=== PATIENT | female | born 1985 | race Two or more races ===

== ENCOUNTER 2024-02-10 08:51 | Emergency (ER) | payer OTHER, SELFPAY ==
[2024-02-10 09:13] VITALS: BP 132/87; PULSE 76; RESP 16; TEMP 36.9; O2SAT 99
[2024-02-10 09:14] VITALS: BMI 28.8
--- NOTE | 2024-02-10 09:15 | PD.EDHA ---
ED Headache RME/HPI General Chief Complaint: Headache Stated Complaint: RIGHT SIDE HEADACHE/THROBBING x 3 DAYS Time Seen by Provider: 02/10/24 09:07 Source: patient, RN notes reviewed and old records reviewed Arrival date/time: 02/10/24 08:51 Mode of arrival: ambulatory Limitations: no limitations RME / HPI RME / HPI Narrative: 38yof presents to ED for 2-day history of right-sided aching, throbbing headache. Patient recently diagnosed with migraines, she has a neurology appointment scheduled for 02/24. No vision changes, nausea/vomiting, neck pain or dizziness reported. Patient has taken Tylenol with mild but temporary relief, no medications or treatments today. Current pain 10/05. Related Data Previous Rx's ?Medication ?Instructions ?Recorded naproxen 500 mg tablet (Naprosyn) 500 mg PO BID PRN pain #30 tabs 02/10/24 ondansetron 4 mg disintegrating 4 mg PO Q6H PRN nausea #10 tabs 02/10/24 tablet Allergies Allergy/AdvReac Type Severity Reaction Status Date / Time No Known Allergies Allergy Verified 02/10/24 08:58 Review of Systems Review of Systems Systems Reviewed: All systems reviewed, normal except as documented Constitutional Constitutional: Denies chills, Denies fever(s) and Reports headache(s) ENT Ears, Nose, Mouth, and Throat: Denies dizziness, Reports headache(s), Denies nasal congestion and Denies neck pain Gastrointestinal Gastrointestinal: Denies nausea and Denies vomiting Musculoskeletal Musculoskeletal: Denies neck pain Neurologic Neurologic: Denies dizziness, Denies localized weakness and Reports headache(s) Past Medical History Past Medical History NEUROLOGIC: Positive Migraine Social History SMOKING STATUS: Never smoker SUBSTANCE USE: does not use ALCOHOL: Never ED Exam General Limitations: Present no limitations General appearance: Present alert and in no apparent distress Head Head exam: Present atraumatic and normocephalic Eye Eye exam: Present normal appearance, PERRL and EOMI ENT ENT exam: Present normal exam and mucous membranes moist Neck Neck exam: Present normal inspection and full ROM Chest Chest inspection: Present normal inspection and symmetric chest wall rise Respiratory Respiratory exam: Present normal lung sounds bilaterally; Absent respiratory distress Cardiovascular Cardiovascular exam: Present regular rate and normal rhythm Extremities Exam Extremities exam: Present normal inspection and full ROM Neurological Exam Neurological exam: Present alert, oriented X3, CN II-XII intact and normal gait; Absent motor sensory deficit Psychiatric Psychiatric exam: Present normal affect and normal mood Skin Skin exam: Present warm, dry, intact and normal color Course Quality Measures none Orders Category Date Time Status DiphenhydrAMINE INJ [Benadryl Inj] Med 02/10/24 09:17 Discontinued 25 mg IM X1 ONE Ketorolac Inj [Toradol Inj] Med 02/10/24 09:17 Discontinued 30 mg IM X1 ONE Metoclopramide [Reglan] Med 02/10/24 09:17 Discontinued 10 mg PO X1 ONE Vital Signs Vital signs: Vital Signs Temperature 98.4 F 02/10/24 09:13 Pulse Rate 76 02/10/24 09:13 Respiratory Rate 16 02/10/24 09:13 Blood Pressure 132/87 H 02/10/24 09:13 Pulse Oximetry (%) 99 02/10/24 09:13 Oxygen Delivery Method Room Air 02/10/24 09:13 Headache MDM Narrative MDM Narrative:: 38yof presents to ED for 2-day history of right-sided aching, throbbing headache. Patient recently diagnosed with migraines, she has a neurology appointment scheduled for 02/24. No vision changes, nausea/vomiting, neck pain or dizziness reported. Patient has taken Tylenol with mild but temporary relief, no medications or treatments today. Current pain 8/10. Patient reassessed. Headache improved after migraine cocktail administered in ED. Current pain 2/10. Encouraged follow-up with neurology as scheduled. Stable for discharge, RTED precautions given. Patient data External records reviewed:: None (No prior visits) Clinical information provided by:: patient Social determinants that could affect healthcare access:: other (specify) (Acculturation difficulty, unemployed) Patient has the following chronic illnesses:: Migraines How is presenting disease/condition affected by chronic disease/condition?: caused by Evaluation data The following diagnostics were reviewed and interpreted by me:: other (specify) Lab and/or radiology exams considered but not ordered:: CT head: Patient is neurologically intact, no alarming symptoms or exam findings Interpretation Summary: na Medications / Prescriptions Medications or Prescriptions considered but not ordered:: No antibiotics recommended at this time Medication administrations:: Medication Administration History Discontinued Medications Diphenhydramine HCl (Diphenhydramine Inj 50 Mg/Ml Vial) 25 mg IM X1 ONE Stop: 02/10/24 09:18 Last Admin: 02/10/24 09:23 Dose: 25 mg Documented By: DANNA Ketorolac Tromethamine (Ketorolac Inj 60 Mg/2 Ml Vial) 30 mg IM X1 ONE Stop: 02/10/24 09:18 Last Admin: 02/10/24 09:23 Dose: 30 mg Documented By: DANNA Metoclopramide HCl (Metoclopramide 5 Mg Tablet) 10 mg PO X1 ONE Stop: 02/10/24 09:18 Last Admin: 02/10/24 09:23 Dose: 10 mg Documented By: DANNA Above medications administered in the ED Consultations Consultation(s) initiated? (list below): No Diagnosis Differential diagnosis headache: migraine, tension headache, subarachnoid hemorrhage, headache and sinusitis Most likely diagnosis given after review of the tests above:: Migraine headache Admission Indicated Admission indicated?: not indicated Admission Request Was there a request for admission?: No Disposition Plan Disposition Plan: Discharge Discharge Attestation Discharge Attestation: The patient and all family members were given an opportunity to ask questions and understood the discharge instructions. Discharge instructions specifically effects, indications for sooner follow up or return to the emergency department, and the expected course of current diagnosis. Patient condition: Stable Discharge Plan Plan Patient Disposition: HOME (Self Care) Patient condition on transfer: Stable Prescriptions/Referrals Prescriptions/Med Rec: New ondansetron 4 mg tablet,disintegrating 4 mg PO Q6H PRN (Reason: nausea) Qty: 10 0RF naproxen [Naprosyn] 500 mg tablet 500 mg PO BID PRN (Reason: pain) Qty: 30 0RF Referrals: Stu Herrera MD [Primary Care Provider] - In 1 week Problem List Clinical Impression: Migraine Patient/Caregiver Discharge Instructions Education Materials: ED Headache, Migraine, Classic Print Language: Azeri Stand Alone Forms: Samira Award Info., Patient Portal Info Letter PA/[employer] Supervising Physician PA/[employer] Supervising Physician: Mirian
[2024-02-10] MEDS: DiphenhydrAMINE INJ 50 MG/ML VIAL 25 MG IM (09:23)
[2024-02-10] MEDS: METOCLOPRAMIDE 5 MG TABLET 10 MG PO (09:23)
[2024-02-10] MEDS: KETOROLAC INJ 60 MG/2 ML VIAL 30 MG IM (09:23)
== END 2024-02-10 10:42 | disposition home or self-care (01) ==
PROVIDERS: Emergency Provider Emergency Medicine; PCP Family Medicine; Referring Provider Emergency Medicine
DX: G43.909 Migraine, unspecified, not intractable, without status migrainosus (principal)
CPT/HCPCS: 96372; 99283; J1200; J1885; A9270